=== PATIENT | male | born 1985 | race Hispanic/Latino ===

== ENCOUNTER 2023-12-13 19:38 | Inpatient (IN) | payer OTHER ==
--- OUTSIDE RECORDS SUMMARY | 2023-12-13 19:41 | XMS REPORT | Continuity of Care Document ---
Author Name Unknown Address [address] [facility]. [address] [place] [address] [facility] thconnect Address [address] [facility] [address] [place] [address] Care Team Providers Care Alining Inspector Name Role Phone Margy Ramirez Attending Clinician Unavailable Wade Garcia Attending Clinician Unavailable Theresa Dupont Attending Clinician Unavailable Avi Deras Attending Clinician Unavailable Sherrill Sandhu Attending Clinician Unavailable DR RAINE VINCENT Attending Clinician Unavailable DR RAINE VINCENT Admitting Clinician Unavailable Payers Payer Name Policy Type Policy Number Effective Date Expirati on Date Source [place] [address] [id number] 2017 00:00:00 [facility] Problems Condition Name Condition Details Condition Category Status Onset Date Resolution Date Last Treatment Date Treating Clinician Comments Source Hypertensi on Hypertensi on Problem Active [facility] [id number] Abnormal liver function test Problem Active [facility] [id number] Prediabete s Problem Active [facility] [id number] Vitamin D deficiency Problem Active [facility] [id number] Hyperlipid emia, unspecifie d hyperlipid emia type Problem Active [facility] [id number] Pain of left heel Problem Active [facility] [id number] Pain of right heel Problem Active [facility] Essential hypertensi on Essential hypertensi on Problem Active [facility] Gout Gout Problem Active [facility] Mixed hyperlipid emia Elevated triglyceri philomena with high cholestero l Problem Active [facility] [id number] Alcohol abuse Problem Active [facility] [id number] Hyperurice clayton Problem Active [facility] Allergic rhinitis Allergic rhinitis Problem Active [facility] Obesity Obesity (BMI 30-39.9) Problem Active [facility] Allergies, Adverse Reactions, Alerts Allergy Name Allergy Type Status Severity Reaction(s) Onset Date Inactive Date Treating Clinician Comments Source No Known Drug Allergie s DA [facility] Social History Social Habit Start Date Stop Date Quantity Comments Source History of Tobacco Use [facility] Sex Assigned At [facility] Smoking Status Start Date Stop Date Source Never Smoker [facility] Medications Ordered Medication Name Filled Medication Name Start Date Stop Date Current Medication? Ordering Clinician Indication Dosage Frequency Signature (SIG) Comments Components Source Losartan Potassium 100 MG Losartan Potassium 100 MG 07-28 00:00: 00 No 1{table t} QD Losartan Potassium 100 MG Fenofibrate 145 MG Fenofibrate 145 MG 07-28 00:00: 00 No 1{table t} QD Fenofibrat e 145 MG Atorvastati n Calcium 80 MG Atorvastati n Calcium 80 MG 07-28 00:00: 00 No 1{table t} QD Atorvastat in Calcium 80 MG Allopurinol 300 MG Allopurinol 300 MG 02-17 00:00: 00 10-26 00:00 :00 No 1{table t} QD Allopurino l 300 MG Allopurinol 300 MG Allopurinol 300 MG 02-17 00:00: 00 05-18 00:00 :00 No 1{table t} QD Allopurino l 300 MG amLODIPine Besylate 5 MG amLODIPine Besylate 5 MG 06-16 00:00: 00 No 1{table t} QD amLODIPine Besylate 5 MG Pravastatin Sodium Pravastatin Sodium 03-13 00:00: 00 Yes Sherrill Millender 1 tablet in evening [facility] Allopurinol Allopurinol 01-31 00:00: 00 04-12 00:00 :00 No Sherrill Millender 1 tablet [facility] Indomethaci n Indomethaci n 01-31 00:00: 00 09-14 00:00 :00 No Sherrill Millender 1 capsule as needed for pain; take with food or milk [facility] Atorvastati n Calcium Atorvastati n Calcium 07-01 00:00: 00 Yes Sherrill Millender 1 tablet in evening [facility] Zestoretic Zestoretic Yes Sherrill Millender 1-2 tablets [facility] amLODIPine Besylate 5 MG amLODIPine Besylate 5 MG No 1{table t} QD amLODIPine Besylate 5 MG Fluticasone Propionate 50 MCG/ACT Fluticasone Propionate 50 MCG/ACT No Fluticason e Propionate 50 MCG/ACT Allopurinol 100 MG Allopurinol 100 MG No Allopurino l 100 MG Losartan Potassium 50 MG Losartan Potassium 50 MG No Losartan Potassium 50 MG Fluticasone Propionate 50 MCG/ACT Fluticasone Propionate 50 MCG/ACT No Fluticason e Propionate 50 MCG/ACT Atorvastati n Calcium 40 MG Atorvastati n Calcium 40 MG No Atorvastat in Calcium 40 MG Losartan Potassium 50 MG Losartan Potassium 50 MG No 1{table t} QD Losartan Potassium 50 MG amLODIPine Besylate 5 MG amLODIPine Besylate 5 MG No 1{table t} QD amLODIPine Besylate 5 MG Atorvastati n Calcium 40 MG Atorvastati n Calcium 40 MG No Atorvastat in Calcium 40 MG Fluticasone Propionate 50 MCG/ACT Fluticasone Propionate 50 MCG/ACT No Fluticason e Propionate 50 MCG/ACT Allopurinol 100 MG Allopurinol 100 MG No 1{table t} BID Allopurino l 100 MG Losartan Potassium 50 MG Losartan Potassium 50 MG No Losartan Potassium 50 MG amLODIPine Besylate 5 MG amLODIPine Besylate 5 MG No 1{table t} QD amLODIPine Besylate 5 MG Losartan Potassium 50 MG Losartan Potassium 50 MG No 1{table t} QD Losartan Potassium 50 MG Atorvastati n Calcium 40 MG Atorvastati n Calcium 40 MG No Atorvastat in Calcium 40 MG Fluticasone Propionate 50 MCG/ACT Fluticasone Propionate 50 MCG/ACT No Fluticason e Propionate 50 MCG/ACT Vital Signs Vital Name Observation Time Observation Value Comments Carmen estrada height 2022-07-28 10:00:00 68 [in_i] Commo n [facility] weight 2022-07-28 10:00:00 220 [lb_av] Comm on [facility] bmi 2022-07-28 10:00:00 33.45 kg/m2 Comm on [facility] blood pressure diastolic 2022-02-17 08:00:00 76 mm[Hg] [facility] height 2022-02-17 08:00:00 68 [in_i] Commo n [facility] weight 2022-02-17 08:00:00 230.8 [lb_av] Co mmon [facility] temperature 2022-02-17 08:00:00 97.3 [degF] Com mon [facility] bmi 2022-02-17 08:00:00 35.09 kg/m2 Comm on [facility] oximetry 2022-02-17 08:00:00 99 % Commo n [facility] respiratory rate 2022-02-17 08:00:00 16 /min [facility] blood pressure systolic 2022-02-17 08:00:00 138 mm[Hg] [facility] height 2022-01-15 10:00:00 68 [in_i] Commo n [facility] weight 2022-01-15 10:00:00 220 [lb_av] Comm on [facility] temperature 2022-01-15 10:00:00 98 [degF] Comm on [facility] bmi 2022-01-15 10:00:00 33.45 kg/m2 Comm on [facility] Height 2020-09-27 05:02:00 172.72 CM Weight 2020-09-27 05:02:00 97.97 KG Weight 2020-09-24 11:28:00 97.52 KG Height 2020-09-24 11:28:00 172.72 CM Procedures Procedure Date / Time Performed Performing Clinicia n Source EXCISION OF RIGHT TARSAL OPEN 2020-09-27 00:00:00 [facility] REPAIR RIGHT LOWER LEG TENDON OPEN 2020-09-27 00:00:00 [facility] Encounters Start Date/Time End Date/Time Encounter Type Admission Type Attending [facility] Care Facility Care Department Encounter ID Source 2022-05-18 14:03:00 [facility] [id number] [facility] 2022-02-18 08:49:00 Out[facility] Margy [facility] [id number] [facility] 2022-01-14 14:40:01 Outpatient Margy [facility] [id number] [facility] 2021-12-17 12:56:02 Outpatient Wade Garcia [facility] [id number] [facility] 2021-12-17 12:55:42 Outpatient Wade Garcia [facility] [id number] [facility] 2021-12-17 12:42:05 Outpatient Theresa Dupont [facility] [id number] [facility] 2021-12-17 12:15:12 Outpatient Avi Deras [facility] [id number] [facility] 2021-12-17 12:13:45 Outpatient Avi Deras [facility] [id number] [facility] 2021-12-17 12:05:34 Outpatient Avi Deras [facility] [id number] [facility] 2021-12-17 11:58:47 Outpatient Avi Deras [facility] [id number] [facility] 2021-12-17 11:58:38 Outpatient [facility] [id number] [facility] 2021-12-17 11:40:31 Outpatient Sherrill Sandhu [facility] [id number] [facility] 2021-12-17 11:39:49 Outpatient Sherrlil Sandhu [facility] [id number] [facility] 2021-12-17 11:13:37 Outpatient Sherrill Sandhu [facility] [id number] [facility] 2021-12-17 11:01:07 Outpatient Sherrill Sandhu [facility] [id number] [facility] 2022-07-28 00:00:00 2022-07-28 00:00:00 OFFICE VISIT ESTAB PT LEVEL 4 [facility] [id number] [facility] 2022-02-17 00:00:00 2022-02-17 00:00:00 OFFICE VISIT ESTAB PT LEVEL 4 [facility] [id number] [facility] 2022-01-15 00:00:00 2022-01-15 00:00:00 OFFICE VISIT ESTAB PT LEVEL 4 [facility] [id number] [facility] 2022-01-12 00:00:00 2022-01-12 00:00:00 (TEL) [facility] [id number] [facility] 2021-06-16 00:00:00 2021-06-16 00:00:00 Outpatient [facility] [id number] [facility] 2021-03-17 00:00:00 2021-03-17 00:00:00 Outpatient [facility] [id number] [facility] 2021-02-07 00:00:00 2021-02-07 00:00:00 Outpatient [facility] [id number] [facility] 2020-11-19 00:00:00 2020-11-19 00:00:00 Outpatient [facility] [id number] [facility] 2020-11-07 00:00:00 2020-11-07 00:00:00 Outpatient [facility] [id number] [facility] 2020-10-09 00:00:00 2020-10-09 00:00:00 Outpatient [facility] [id number] [facility] 2020-09-27 04:53:00 2020-09-27 08:35:00 Outpatient [facility]ES [facility] [id number] [facility] 2020-09-02 00:00:00 2020-09-02 00:00:00 Outpatient [facility] [id number] [facility] 2020-07-16 16:20:00 2020-07-16 16:20:[address] [facility] [facility] [address] [facility] [id number] [facility] 2020-06-27 08:49:00 2020-06-27 08:49:[address] [facility] [facility] [address] [facility] [id number] [facility] 2020-03-13 09:40:00 2020-03-13 09:40:[address] [facility] [facility] [place] [facility] [id number] [facility] 2020-02-19 22:51:00 2020-02-19 22:51:[address] [facility] [facility] [address] [facility] [id number] [facility] 2020-02-01 16:30:00 2020-02-01 16:30:[address] [facility] [facility] [id number] [facility] 2019-12-18 19:08:00 2019-12-18 19:08:[address] [facility] [facility] [address] [facility] [id number] [facility] 2019-12-07 11:15:00 2019-12-07 11:15:00 [facility] [id number] [facility] 2018-07-01 15:45:00 2018-07-01 15:45:00 [facility] [id number] [facility] 2018-06-30 14:09:00 2018-06-30 14:09:00 [facility] [id number] [facility] 2018-06-28 22:15:00 2018-06-28 22:15:00 [facility] [id number] [facility] 2018-06-24 13:00:00 2018-06-24 13:00:00 [facility] [id number] [facility]
[2023-12-13] MEDS ORDERED: LOSARTAN POTASSIUM 50 MG TABLET ONE (20:36)
[2023-12-13 20:40] LABS: Absolute Lymphocytes (CBC) 2.7 K/uL (0.7-4.9); Hematocrit 45.6 % (39.6-49.0); Lymphocytes % 25.8 % (15.3-44.8); MPV 7.5 fL (7.6-11.3); Platelets 357 thou/uL (152-406); RBC Red Blood Cell Count 5.13 M/uL (4.33-5.43)
[2023-12-13 21:29] LABS: Troponin High Sensitivity 14.2 pg/mL (<58.9)
[2023-12-13 21:31] LABS: Potassium 3.9 mEq/L (3.5-5.1)
--- NOTE | 2023-12-13 21:52 | EDPHYS ---
Physician Documentation [facility] Name: Kush Sosa Jr Age: 38 yrs Sex: Male : 1985 Arrival Date: 12/13/2023 Time: 19:38 Bed 16 Private MD: ED Physician Terry Pedraza HPI: 12/13 22:27 This 38 yrs old Male presents to ER via Ambulatory with complaints of High kb Blood Pressure. 22:27 Patient is a 38-year-old male with a history of hypertension who presents for high kb blood pressure. States he used to take losartan 50 mg daily but weaned himself off and now takes a beet supplement which she believes has been keeping his blood pressure under control. States he has not checked his blood pressure in months. States he had a nosebleed earlier today so he checked his blood pressure and it was elevated so he went to urgent care. Urgent care checked his blood pressure and told him he needed to come to the emergency department for evaluation. Historical: - Allergies: 19:54 No Known Allergies; jj7 - PMHx: 19:54 Hypertensive disorder; jj7 - PSHx: 19:54 Vasectomy; TENDON REPAIR IN RIGHT FOOT; jj7 - Immunization history:: Adult Immunizations up to date, Flu vaccine is up to date. - Social history:: Smoking status: Patient denies any tobacco usage or history of. Patient uses alcohol, occasionally. Patient/guardian denies using street drugs. ROS: 22:27 Constitutional: Negative for fever, chills, and weight loss, kb 22:27 ENT: Positive for nose bleed, 22:27 All other systems are negative, Exam: 22:27 Constitutional: This is a well developed, well nourished patient who is awake, alert, kb and in no acute distress. Head/Face: Normocephalic, atraumatic. ENT: Moist Mucous membranes Cardiovascular: Regular rate Respiratory: Respirations even and unlabored. No increased work of breathing. Talking in full sentences Abdomen/GI: Soft, non-tender. No distention Skin: Warm, dry with normal turgor. Normal color. MS/ Extremity: Pulses equal, no cyanosis. Neurovascular intact. Full, normal range of motion. Neuro: Awake and alert, GCS 15, oriented to person, place, time, and situation. Moves all extremities. Normal gait. Vital Signs: 19:51 BP 227 / 137; Pulse 88; Resp 20; Temp 98; Pulse Ox 100% ; Weight 104.33 kg; Height 5 jj7 ft. 8 in. ; Pain 0/10; 21:14 BP 197 / 128; Pulse 77; Resp 17; Pulse Ox 100% on R/A; ap3 23:45 BP 186 / 121; Pulse 84; Pulse Ox 100% ; ap3 19:51 Body Mass Index 34.97 (104.33 kg, 172.72 cm) [facility] 19:51 Pain Scale: Adult j7 MDM: 19:43 Patient medically screened. kb 21:50 Differential diagnosis: hypertensive crisis, Malignant HTN, abnormal ekg, renal kb failure, abnormal electrolytes. Data reviewed: vital signs, nurses notes. Consideration of Admission/Observation Patient was admitted/placed on observation. Escalation of care including admission/observation considered. Management of patient was discussed with the following: Hospitalist: Dr Drummond accepts pt for admission. Care significantly affected by the following chronic conditions: Hypertension. Counseling: I had a detailed discussion with the patient and/or guardian regarding the historical points, exam findings, and any diagnostic results supporting the discharge/admit diagnosis, lab results, the need for further work-up and treatment in the hospital. 12/13 20:07 Order name: CBC with Diff; Complete Time: 20:56 kb 12/13 20:07 Order name: Basic Metabolic Panel; Complete Time: 21:33 kb 12/13 20:07 Order name: Troponin High Sensitivity; Complete Time: 21:33 kb 12/13 21:51 Order name: Urinalysis w/ reflexes 12/13 22:26 Order name: NT PRO-BNP; Complete Time: 15:36 EDMS 12/13 22:26 Order name: Urinalysis w/ reflexes; Complete Time: 15:36 EDMS 12/13 22:26 Order name: CBC with Automated Diff EDMS 12/13 22: Order name: CBC with Automated Diff; Complete Time: 15:36 EDMS 12/13 22:26 Order name: Comprehensive Metabolic Panel EDMA 12/13 22: Order name: Comprehensive Metabolic Panel; Complete Time: 15:36 EDMS 12/13 22:26 Order name: Lipid Profile EDMA 12/13 22:26 Order name: Lipid Profile; Complete Time: 15:36 EDMA 12/13 22:26 Order name: Troponin High Sensitivity EDMA 12/13 22:26 Order name: Troponin High Sensitivity; Complete Time: 15:36 EDMS 12/13 22:26 Order name: Troponin High Sensitivity EDMA 12/13 22:26 Order name: Troponin High Sensitivity EDMA 12/14 05:46 Order name: LDL, Direct; Complete Time: 15:36 EDMA 12/13 22:32 Order name: Renal Ultrasound-Complete; Complete Time: 15:36 EDMA 12/13 20:02 Order name: EKG; Complete Time: 20:03 kb 12/13 20:02 Order name: EKG - Nurse/Tech; Complete Time: 20:22 kb 12/13 20:07 Order name: IV Start; Complete Time: 20:31 kb Administered Medications: 20:42 Drug: Losartan PO 25 mg PO once Route: PO; ap3 22:19 Follow up: Response: No adverse reaction ap3 22:20 Not Given (Physician Discretion): [id number] mg IVP once ap3 Disposition: 12/14 01:55 Co-signature as Attending Physician, Terry Pedraza MD I agree with the assessment sp4 and plan of care. I reviewed the patient's care provided by Advanced Practice Provider \T\ agree w/ the diagnosis \T\ care plan. I personally saw the pt \T\ performed a substantive portion of the visit, incldng all aspects of the (History/Exam/Medical Decision Making). Disposition Summary: 12/13/23 21:52 Hospitalization Ordered Notes: Hospitalization Status: Observation Provider: Chilango Drummond Condition: Stable kb Problem: new kb Symptoms: are unchanged kb Bed/Room Type: Standard Location: Telemetry/MedSurg (observation)(12/14/23 16:39) Room Assignment: (12/14/23 17:59) as6 Diagnosis - Essential (primary) hypertension kb - Acute kidney failure, unspecified kb Discharge Instructions: - Discharge Summary Sheet kb Forms: - Medication Reconciliation Form kb - SBAR form kb - Leadership Thank You Letter kb Prescriptions: - losartan 25 mg Oral tablet - take 1 tablet ORAL route once daily; 30 tablet; Refills: 0, Product Selection kb Permitted Critical care time excluding procedures: 12/13 21:52 Critical care time: Bedside Care: 15 minutes, Consultation: 10 minutes, Family kb Intervention: 5 minutes. Total time: 30 minutes Signatures: Dispatcher [employer] EDGina Yan FNP-C FNP-Hilda Amezcua Amanda RN RN ap3 Gualberto Bergman, RN RN as6 Gracie Oliver RN RN jj7 Annalee Sánchez RN RN pf1 Terry Pedraza MD MD sp4 Corrections: (The following items were deleted from the chart) 21:52 Telemetry/MedSurg (observation) kb pf1 23:58 21:52 kb [facility] 12/14 16:39 12/13 23:58 [facility] ER HOLD pf1 12/14 16:39 12/13 23:58 ERHOLD- pf1 12/14 17:59 16:39 221 bd as6
--- NOTE | 2023-12-13 21:52 | ER ---
Nurse's Notes [facility] Name: Kush Sosa Jr Age: 38 yrs Sex: Male : 1985 Arrival Date: 12/13/2023 Time: 19:38 Bed 16 Private MD: Diagnosis: Essential (primary) hypertension;Acute kidney failure, unspecified Presentation: 12/13 19:51 Chief complaint: Patient states: WAS SEEN AT URGENT CARE AND HIS BP WAS HIGH AND TOLD omnicajDebra TO COME HERE. STATES HE WEANED HIMSELF OFF HIS BP MEDS AND HAS BEEN TAKING BEET VITAMIN. Coronavirus screen: At this time, the client does not indicate any symptoms associated with coronavirus-19. Ebola Screen: No symptoms or risks identified at this time. Initial Sepsis Screen: Does the patient meet any 2 criteria? RR > 20 per min. No. Patient's initial sepsis screen is negative. Does the patient have a suspected source of infection? No. Patient's initial sepsis screen is negative. Risk Assessment: Do you want to hurt yourself or someone else? Patient reports no desire to harm self or others. 19:51 Method Of Arrival: Ambulatory [facility] 19:51 Acuity: AMAURY 3 jj7 20:23 Onset of symptoms is unknown. ap3 20:32 Acuity: AMAURY 2 ap3 Triage Assessment: 19:54 General: Appears in no apparent distress. comfortable, Behavior is calm, cooperative, jj7 appropriate for age. Pain: Denies pain. Historical: - Allergies: 19:54 No Known Allergies; jj7 - PMHx: 19:54 Hypertensive disorder; jj7 - PSHx: 19:54 Vasectomy; TENDON REPAIR IN RIGHT FOOT; jj7 - Immunization history:: Adult Immunizations up to date, Flu vaccine is up to date. - Social history:: Smoking status: Patient denies any tobacco usage or history of. Patient uses alcohol, occasionally. Patient/guardian denies using street drugs. Screenin:56 [facility] ED Fall Risk Assessment (Adult) History of falling in the last 3 months, jj7 including since admission No falls in past 3 months (0 pts) Confusion or Disorientation No (0 pts) Intoxicated or Sedated No (0 pts) Impaired Gait No (0 pts) Mobility Assist Device Used No (0 pt) Altered Elimination No (0 pt) Score/Fall Risk Level 0 - 2 = Low Risk Oriented to surroundings, Maintained a safe environment, Educated pt \T\ family on fall prevention, incl call for assistance when getting out of bed. Abuse screen: Denies threats or abuse. Nutritional screening: No deficits noted. Tuberculosis screening: No symptoms or risk factors identified. Assessment: 20:23 General: Appears in no apparent distress. Behavior is calm, cooperative, appropriate ap3 for age. Pain: Complains of pain in right lateral anterior chest Is intermittent. Neuro: Level of Consciousness is awake, alert, obeys commands, Oriented to person, place, time, situation, Appropriate for age. Cardiovascular: Patient's skin is warm and dry. Respiratory: Airway is patent Respiratory effort is even, unlabored, Respiratory pattern is regular, symmetrical. 22:19 General: hospitalist at bedside instructed this nurse not to give the hydralazine. she ap3 stated she would put in other orders. . Vital Signs: 19:51 BP 227 / 137; Pulse 88; Resp 20; Temp 98; Pulse Ox 100% ; Weight 104.33 kg; Height 5 jj7 ft. 8 in. ; Pain 0/10; 21:14 BP 197 / 128; Pulse 77; Resp 17; Pulse Ox 100% on R/A; ap3 23:45 BP 186 / 121; Pulse 84; Pulse Ox 100% ; ap3 19:51 Body Mass Index 34.97 (104.33 kg, 172.72 cm) jj7 19:51 Pain Scale: Adult j ED Course: 19:42 Patient arrived in ED. mr 19:43 Gina Thornton FNP-C is [facility]. kb 19:43 Elvis Lugo MD is Attending Physician. kb 19:54 Triage completed. jj7 19:54 Arm band placed on left wrist. jj7 19:56 Patient has correct armband on for positive identification. jj7 19:56 No provider procedures requiring assistance completed. jj7 20:22 EKG done, by ED staff, reviewed by Gina FRAGA. ap3 20:23 environmental monitoring specialist on. Pulse ox on. NIBP on. Door closed. Noise minimized. ap3 20:31 Troponin High Sensitivity Sent. ap3 20:31 Basic Metabolic Panel Sent. ap3 20:31 CBC with Diff Sent. ap3 20:45 Mary Almaraz YING is Primary Nurse. ap3 20:45 Provided Education on: medication prior to administration . ap3 21:51 Chilango Drummond MD is Hospitalizing Provider. kb 23:22 Renal Ultrasound-Complete In Process Unspecified. EDMS 12/14 01:04 Attending Physician role handed off by Elvis Lugo MD sp4 01:04 Terry Pedraza MD is Attending Physician. sp4 02:45 Patient admitted, IV remains in place. lg3 07:04 Primary Nurse role handed off by Mary Almaraz RN bd Administered Medications: 12/13 20:42 Drug: Losartan PO 25 mg PO once Route: PO; ap3 22:19 Follow up: Response: No adverse reaction ap3 22:20 Not Given (Physician Discretion): [id number] mg IVP once ap3 Medication: 20:24 VIS not applicable for this client. ap3 Outcome: 21:52 Decision to Hospitalize by Provider. kb 12/14 02:45 Admitted to ER Hold. Please see [facility] for further documentation. lg3 Condition: stable Instructed on the need for admit, Demonstrated understanding of instructions, 18:22 Patient left the ED. as6 Signatures: Dispatcher [employer] EDMS Gina Thornton, OFFICE AIDE-C OFFICE AIDE-CkHilda Russell LevyChichi, [facility] Reg mr Mary Almaraz, RN RN ap3 Mariah Olvera RN RN lg3 Gualberto Bergman RN RN as6 Gracie Oliver RN RN jj7 Terry Pedraza MD MD sp4
[2023-12-13] MEDS ORDERED: HYDRALAZINE HCL 20 MG/ML VIAL ONE (22:10)
[2023-12-13] MEDS ORDERED: ONDANSETRON 4 MG/2 ML VIAL IV PRN (22:21)
[2023-12-13] MEDS: Ringers Lactate 1,000 ML IV SCH (23:00)
--- NOTE | 2023-12-14 00:05 | P.HP ---
Certification for Inpatient With expected LOS: >2 Midnights Patient will require the following post-hospital care: None Practitioner: I am a practitioner with admitting privileges, knowledge of patient current condition, hospital course, and medical plan of care. Services: Services provided to patient in accordance with Admission requirements found in Title 42 Section 412.3 of the Code of Federal Regulations Patient History Date of Service: 12/13/23 Reason for admission: Hypertensive urgency History of Present Illness: 38 y/o M with a history of HTN was sent from urgent care to the ED due to uncontrolled HTN. He had initially presented to the urgent care for acute onset of excessive nose bleed but resolved by the time he arrived the urgent care. His BP was 214/155, so he was sent to the ED. Patient admitted that he had been on 50mg of Losartan for about 3-4 years but stopped about 9 months ago because he did not see any control of his BP and he always felt dizzy on bending down. He decided to try beets and natural remedies but he had not been checking his BP to ensure it was working except 2 months ago, when he checked his BP once and it was 135/80. He denied any headaches, blurred vision, chest pain, SOB, N/V and leg swelling. When he arrived the ED, initial BP was 227/137. Labs showed BUN/Cr 24/2.36 and GFR 35. Patient had received 25mg of Losartan x1 in the ED and being admitted for further care. Allergies No Known Allergies Allergy (Unverified 12/13/23 23:23) Review of Systems 10-point ROS is otherwise unremarkable Physical Examination - Vital Signs Temperature: 98 F Blood Pressure: 212/115 Pulse: 88 Respirations: 17 Pulse Ox (%): 100 - Physical Exam General: Alert, Oriented x3 HEENT: Atraumatic, Normocephalic, PERRLA, Mucous membr. moist/pink Neck: Supple, JVD not distended Respiratory: Clear to auscultation bilaterally Cardiovascular: No edema Gastrointestinal: Normal bowel sounds, Soft and benign, Non-distended Musculoskeletal: No swelling, No tenderness Integumentary: No rashes Neurological: Normal gait, Normal speech - Studies Laboratory Data (last 24 hrs) 12/13/23 12/13/23 20:30 20:30 WBC 10.50 Hgb 16.2 Hct 45.6 Plt Count 357 Sodium 136 Potassium 3.9 BUN 24 H Creatinine 2.36 H Glucose 128 H Assessment and Plan - Plan Hypertensive urgency From medication non-compliance Start Amlodipine and Metoprolol PRN IV Labetalol Hold ARBs F/u repeat troponin Echo to evaluate HTNsive heart disease Acute on chronic kidney injury stage 3 Underlying hypertensive kidney disease Check renal US Lactated ringers at 75ml/hr Avoid nephrotoxins, ARB/JOAN-I Serial labs - Advance Directives Does patient have a Living Will: No Does patient have a Durable POA for Healthcare: No
[2023-12-14 00:16] VITALS: O2SAT 100; BMI 34.9
[2023-12-14] MEDS ORDERED: HEPARIN 5000 UNIT/ML 1 ML VIAL ONE ×2 (00:35→08:00)
[2023-12-14] MEDS ORDERED: Ringers Lactate 1,000 ML IV ONE (00:35)
[2023-12-14] MEDS: HEPARIN 5000 UNIT/ML 1 ML VIAL SQ SCH ×2 (00:37→08:14)
[2023-12-14] MEDS ORDERED: LABETALOL 20 MG/4ML SYRINGE IV ONE ×2 (00:49→10:21)
[2023-12-14] MEDS: LABETALOL 20 MG/4ML SYRINGE IV PRN ×2 (00:54→10:26)
[2023-12-14 01:48] LABS: Specific Gravity 1.011 (1.005-1.030); Urine Bacteria None Seen /HPF (<20); Urine Bilirubin NEGATIVE (Negative); Urine Blood 1+ (Negative); Urine Clarity Clear (Clear); Urine Color Light-Yellow (Yellow); Urine Glucose NEGATIVE (Negative); Urine Mucus Slight /HPF (None Seen); Urine Protein 3+ (Negative); Urine RBC <5 /HPF (None Seen); Urine Urobilinogen Normal (Normal)
[2023-12-14 05:09] LABS: Absolute Lymphocytes (CBC) 3.4 K/uL (0.7-4.9); Hematocrit 42.8 % (39.6-49.0); Lymphocytes % 38.2 % (15.3-44.8); MCV 89.3 fL (80-100); MPV 7.6 fL (7.6-11.3); Platelets 325 thou/uL (152-406)
[2023-12-14 05:20] LABS: ALT/SGPT 46 U/L (16-61); AST/SGOT 20 U/L (15-37); Albumin 2.5 g/dL (3.4-5.0); Alkaline Phosphatase 104 U/L (45-117); BUN Blood Urea Nitrogen 21 mg/dL (7-18); Bicarbonate 24 mEq/L (21-32); Bilirubin Total 0.4 mg/dL (0.2-1.0); Glomerular Filtration Rate 43 ml/min (=/>90); Glucose Level 117 mg/dL (74-106); HDL Cholesterol 30 mg/dL (40-60); NT PRO-BNP 272 pg/mL (<125); Potassium 3.7 mEq/L (3.5-5.1); Protein, Total 6.2 g/dL (6.4-8.2); Sodium Level 136 mEq/L (136-145); Troponin High Sensitivity 15.7 pg/mL (<58.9)
[2023-12-14 05:46] LABS: LDL, Direct 102 mg/dL (100-129)
[2023-12-14] MEDS ORDERED: METOPROLOL TAR 25 MG TAB PO SCH ×2 (06:00)
[2023-12-14] MEDS ORDERED: AMLODIPINE 10 MG TAB ONE (08:00)
[2023-12-14] MEDS ORDERED: INFLUENZA VACCINE (for 6+ mo) 0.5 ML DOSE IMVAC ONE (08:00)
--- NOTE | 2023-12-14 08:18 | RAD REPORT ---
EXAM DESCRIPTION: US - Renal Ultrasound-Complete - 12/13/2023 11:20 pm CLINICAL HISTORY: uncontrolled HTN COMPARISON: No comparisons FINDINGS: Both kidneys are echogenic bilaterally. Incidentally noted hepatic steatosis. The right kidney measures 10.6 cm. Small hypoechoic lesion in the lower pole left kidney measuring 1. 8 cm is probably a cyst. The left kidney measures 11.1 cm. No hydronephrosis, focal mass or perinephric fluid. The urinary bladder is incompletely distended without gross abnormality seen. IMPRESSION: No evidence of hydronephrosis. Echogenic kidneys bilaterally suggesting medical renal di sease.
[2023-12-14] MEDS ORDERED: AMLODIPINE 10 MG TAB PO SCH (09:00)
[2023-12-14] MEDS: Ringers Lactate 1,000 ML IV SCH (12:20)
[2023-12-14] MEDS ORDERED: HYDRALAZINE HCL 25 MG TABLET PO SCH (14:00)
[2023-12-14] MEDS ORDERED: HYDRALAZINE HCL 25 MG TABLET ONE (14:22)
[2023-12-14 16:14] VITALS: BP 148/109; TEMP 98.1
--- NOTE | 2023-12-14 17:01 | P.DS ---
Admission Date: 12/13/23 Discharge Date: 12/14/23 Disposition: ROUTINE DISCHARGE Discharge Condition: FAIR Reason for Admission: Hypertensive urgency Brief History of Present Illness: 38 y/o M with a history of HTN was sent from urgent care to the ED due to uncontrolled HTN. He had initially presented to the urgent care for acute onset of excessive nose bleed but resolved by the time he arrived the urgent care. His BP was 214/155, so he was sent to the ED. Patient admitted that he had been on 50mg of Losartan for about 3-4 years but stopped about 9 months ago because he did not see any control of his BP and he always felt dizzy on bending down. He decided to try beets and natural remedies but he had not been checking his BP to ensure it was working except 2 months ago, when he checked his BP once and it was 135/80. He denied any headaches, blurred vision, chest pain, SOB, N/V and leg swelling. When he arrived the ED, initial BP was 227/137. Labs showed BUN/Cr 24/2.36 and GFR 35. Patient had received 25mg of Losartan x1 in the ED and being admitted for further care. Vital Signs/Physical Exam: Temp Pulse Resp BP Pulse Ox 98.1 F 70 16 148/109 H 96 12/14/23 16:00 12/14/23 16:00 12/14/23 16:00 12/14/23 16:00 12/14/23 16:00 Laboratory Data at Discharge: WBC 8.90 thou/uL (4.3-10.9) 12/14/23 04:32 Hgb 15.1 g/dL (13.6-17.9) 12/14/23 04:32 Hct 42.8 % (39.6-49.0) 12/14/23 04:32 Plt Count 325 thou/uL (152-406) 12/14/23 04:32 Sodium 136 mEq/L (136-145) 12/14/23 04:32 Potassium 3.7 mEq/L (3.5-5.1) 12/14/23 04:32 BUN 21 mg/dL (7-18) H 12/14/23 04:32 Creatinine 2.01 mg/dL (0.70-1.30) H 12/14/23 04:32 Glucose 117 mg/dL (74-106) H 12/14/23 04:32 Total Bilirubin 0.4 mg/dL (0.2-1.0) 12/14/23 04:32 AST 20 U/L (15-37) 12/14/23 04:32 ALT 46 U/L (16-61) 12/14/23 04:32 Alkaline Phosphatase 104 U/L (45-117) 12/14/23 04:32 Triglycerides 699 mg/dL (<150) H 12/14/23 04:32 Cholesterol 230 mg/dL (<200) H 12/14/23 04:32 LDL Cholesterol Direct 102 mg/dL (100-129) 12/14/23 04:32 HDL Cholesterol 30 mg/dL (40-60) L 12/14/23 04:32 Cholesterol/HDL Ratio 7.67 12/14/23 04:32 Home Medications: Amlodipine [Norvasc*] 10 mg PO DAILY #30 tab 12/14/23 Atorvastatin Calcium [Lipitor] 40 mg PO BEDTIME #30 tab 12/14/23 Fenofibrate [Tricor] 48 mg PO DAILY #30 tab 12/14/23 Hydralazine [Apresoline*] 25 mg PO BID #60 tab 12/14/23 Metoprolol Tartrate [Lopressor*] 25 mg PO BID 6AM 6PM #60 tab 12/14/23 New Medications: Hydralazine [Apresoline*] 25 mg PO BID #60 tab Atorvastatin Calcium [Lipitor] 40 mg PO BEDTIME #30 tab Metoprolol Tartrate [Lopressor*] 25 mg PO BID 6AM 6PM #60 tab Amlodipine [Norvasc*] 10 mg PO DAILY #30 tab Fenofibrate [Tricor] 48 mg PO DAILY #30 tab Physician Discharge Instructions: You were admitted due to severely elevated blood pressure with associated nosebleed. We have to treat you with multiple antihypertensives to improve your blood pressure. Your target blood pressure should be less than 140/90 so you have been prescribed 3 antihypertensives to achieve this target in an effort to reduce complications that can arise from persistent high blood pressure. You may be developing kidney complications due to uncontrolled blood pressure. You will need to follow up with a kidney specialist to monitor your kidneys and also help to control your blood pressure. You can end up on dialysis if you fail to be compliant with your medications and kidney specialist follow-up. It can also develop heart complications from sustaining high blood pressure. Your blood work showed you have severely elevated triglyceride/fat level in your blood. You are prescribed cholesterol medication lipitor and triglyceride medication (Tricor/fenofibrate) to reduce your cholesterol and fat level. Your target triglyceride level should be less than 150, your level now is 699. You will need to reestablish care with a primary care physician to coordinate the management of your medical problems as mentioned above. Diet: AHA Activity: Ad tasneem
--- NOTE | 2023-12-14 17:49 | EKG ---
Test Date: 2023-12-13 Test Time: 20:19:34 Decorating Inspector: ALP MEASUREMENT RESULTS: Intervals: Rate: 72 ND: 170 QRSD: 94 QT: 392 QTc: 429 [place]: P: 27 ND: 170 QRS: -26 T: 100 INTERPRETIVE STATEMENTS: Normal sinus rhythm Possible Left atrial enlargement Incomplete right bundle branch block Left ventricular hypertrophy Nonspecific T wave abnormality Abnormal ECG Compared to ECG 09/17/2020 13:40:20 Incomplete right bundle-branch block now present Left ventricular hypertrophy now present T-wave abnormality now present Electronically Signed On 12-14-23 17:48:20 PATTERN ILLUSTRATOR by Pan Lopez
--- NOTE | 2023-12-15 06:43 | ECHO ---
HEIGHT: 5 ft 8 in WEIGHT: 229 lb 15.074 oz DATE OF STUDY: 12/14/[address]: Chilango Drummond MD 2-DIMENSIONAL: YES M.MODE: YES DOPPLER: YES COLOR FLOW: YES TDS: PORTABLE: YES DEFINITY: BUBBLE STUDY: DIAGNOSIS: UNCONTROLLED HYPERTENSION CARDIAC HISTORY: CATHERIZATION: NO SURGERY: NO PROSTHETIC VALVE: NO PACEMAKER: NO MEASUREMENTS (cm) DIASTOLIC (NORMALS) SYSTOLIC (NORMALS) IVSd 1.3 (0.6-1.2) LA Diam 3.7 (1.9-4.0) LVEF 50-55% LVIDd 4.5 (3.5-5.7) LVIDs 3.6 (2.0-3.5) %FS 22% LVPWd 1.3 (0.6-1.2) Ao Diam 2.9 (2.0-3.7) 2 DIMENSIONAL ASSESSMENT: RIGHT ATRIUM: NORMAL LEFT ATRIUM: NORMAL RIGHT VENTRICLE: NORMAL LEFT VENTRICLE: LEFT VENTRICULAR HYPERTROPHY TRICUSPID VALVE: MILD TRICUSPID REGURGITATION MITRAL VALVE: MILD MITRAL REGURGITATION PULMONIC VALVE: NORMAL AORTIC VALVE: NORMAL PERICARDIAL EFFUSION: NONE AORTIC ROOT: NORMAL LEFT VENTRICULAR WALL MOTION: NORMAL DOPPLER/COLOR FLOW: SEE BELOW COMMENTS: 1. NORMAL LEFT VENTRICULAR EJECTION FRACTION 50-55% 2. GRADE I DIASTOLIC DYSFUNCTION 3. MILD MITRAL REGURGITATION 4. MILD TRICUSPID REGURGITATION 5. MILD CONCENTRIC LEFT VENTRICULAR HYPERTROPHY TECHNOLOGIST: INGA MCGUIRE
== END 2023-12-14 18:22 | disposition home or self-care (01) | DRG 305 ==
LOC: ER 19:38 → ERHOLD 23:21
PROVIDERS: ADMIT Internal Medicine; ATTEND Internal Medicine
DX: I16.0 Hypertensive urgency (principal); N17.9 Acute kidney failure, unspecified; I12.9 Hypertensive chronic kidney disease with stage 1 through stage 4 chronic kidney disease, or unspecified chronic kidney disease; N18.30 Chronic kidney disease, stage 3 unspecified; Z98.52 Vasectomy status
CPT/HCPCS: 36415; 76770; 80048; 80053; 80061; 81001; 83880; 84484; 85025; 93005; 93306; 99285; J0360; J1644; J7120